=== PATIENT | female | born 1985 | race Two or more races ===

== ENCOUNTER 2024-03-15 15:44 | Emergency (ER) | payer OTHER ==
[~2024-03-15] VITALS: Ht 175.3 cm; Wt 69.4 kg
[2024-03-15] MEDS ORDERED: HORIZANT300 MG PO (15:52)
== END 2024-03-15 17:18 | disposition home or self-care (01) ==
LOC: ER 15:45
DX: F41.9 Anxiety disorder, unspecified (principal)